=== PATIENT | female | born 1950 | race African-American/Black ===

== ENCOUNTER 2018-03-29 12:39 | Emergency (ER) | payer SELFPAY ==
[2018-03-29 13:30] LABS: #Eosinphils 0.3 thou/uL (0.0-0.7); #Lymphocytes 1.9 thou/uL (1.20-3.40); #Monocytes 0.5 thou/uL (0.11-0.59); %Basophils 0.3 % (0.0-1.0); %Eosinophils 3.9 % (0.0-10.0); %Monocytes 7.5 % (0.0-10.0); %Neutrophils 60.4 % (42.0-75.0); Hemoglobin 11.3 g/dL (12.0-16.0); Mean Corpuscular HGB CONC 29.8 g/dL (32.0-36.0); Mean Corpuscular Hemoglobin 24.4 pg (27.0-31.0); Mean Corpuscular Volume 81.9 fL (78.0-98.0); Platelet Count 269 thou/uL (130-400); RBC Distribution Width 14.2 % (11.5-14.5); Red Blood Cell (RBC) Count 4.62 mill/uL (4.20-5.40); White Blood Cell (WBC) Count 6.6 thou/uL (4.8-10.8)
[2018-03-29 13:39] LABS: ALT (SGPT) 7 U/L (8-55); AST (SGOT) 16 U/L (5-34); Alkaline Phosphatase 104 U/L (40-150); Anion Gap 11 mmol/L (10-20); BUN (Urea Nitrogen) 13 mg/dL (9.8-20.1); Bilirubin, Total 0.3 mg/dL (0.2-1.2); Calc. Creatinine Clearance 0 mL/min (70-130); Calcium 9.6 mg/dL (7.8-10.44); Carbon Dioxide 28 mmol/L (23-31); Chloride 106 mmol/L (98-107); Estimated GFR-MDRD 61; Globulin 4.1 g/dL (2.4-3.5); Glucose 96 mg/dL (80-115); Potassium 3.2 mmol/L (3.5-5.1); Protein, Total 8.1 g/dL (6.0-8.3); Sodium 142 mmol/L (136-145)
--- NOTE | 2018-03-29 15:22 | ULT ---
TRANSABDOMINAL AND TRANSVAGINAL PELVIC ULTRASOUND: Date: 03/29/18 HISTORY: Heavy bleeding, pain. FINDINGS: The uterus measures 11.3 x 7.7 x 6.7 cm. There is a uterine mass consistent with fibroid measuring 4. 6 x 3.1 cm. The endometrium is thickened, measuring 3.1 cm. No endometrial fluid is seen. The right ovary measures 3.7 x 4.0 x 2.9 cm. The left ovary is not visualized. No definite adnexal ma ss or free fluid in the cul-de-sac is seen. No definite flow is noted to the right ovary. IMPRESSION: 1. Uterine fibroid. 2. Thickened endometrium. POS: OFF
[2018-03-29 15:52] LABS: Bilirubin Negative (Negative); Blood, Urine Small (Negative); Clarity CLEAR (Clear); Glucose, Urine (Dipstick) Negative (Negative); Leukocyte Negative (Negative); Nitrite Negative (Negative); Protein, Urine (Dipstick) Negative (Neg-Trace); Urobilinogen 0.2 mg/dL (0.2-1.0)
[2018-03-29 15:55] LABS: Bacteria/HPF None Seen HPF (None Seen); Hyaline Casts/LPF 0-3 HYALINE CAST LPF (0-3 Hyaline); Pathc Cast-AUWi Flag 0.14 (0-2.49); Squamous Epithelial 0-3 HPF (0-3); WBC/HPF 0-3 HPF (0-3)
[2018-03-29 16:01] LABS: Renal Epithelial None Seen HPF (0-3); Transitional Epithelial NONE SEEN HPF (0-3)
== END 2018-03-29 16:42 | disposition home or self-care (01) ==
LOC: ERS 12:39
DX: N93.8 Other specified abnormal uterine and vaginal bleeding (principal); I10 Essential (primary) hypertension; E78.5 Hyperlipidemia, unspecified; Z79.899 Other long term (current) drug therapy
CPT/HCPCS: 36415; 51701; 76856; 80053; 81003; 81015; 85025; 86850; 86900; 86901; A4353

== ENCOUNTER 2019-12-05 12:36 | Outpatient (CLI) | payer MEDICARE ==
--- NOTE | 2019-12-05 13:41 | RAD ---
PA AND LATERAL VIEWS CHEST: 12/05/19 HISTORY: Malignant neoplasm of endometrium. FINDINGS/IMPRESSION: The heart size is borderline. There is elevation of the left hemidiaphragm. There is mild prominence of the pulmonary vascularity. There is increased density in the left suprahilar/hilar regions. No pne umothoraces or pleural effusions are seen. There are degenerative changes of the spine. Further evaluation with contrast. CT scan is recommended. Code T POS: TPC
== END 2019-12-05 12:37 | disposition home or self-care (01) ==
LOC: BICRAD 12:36
PROVIDERS: ATTEND Obstetrics & Gynecology Gynecologic Oncology
DX: C54.1 Malignant neoplasm of endometrium (principal); M47.814 Spondylosis without myelopathy or radiculopathy, thoracic region
CPT/HCPCS: 71046

== ENCOUNTER 2020-02-13 11:51 | Outpatient (CLI) | payer MEDICARE ==
--- NOTE | 2020-02-13 14:39 | RAD ---
PA AND LATERAL CHEST: 02/13/20 HISTORY: Malignant neoplasm of endometrium. COMPARISON: 12/05/19. There is continued elevation of the left hemidiaphragm. The heart size is normal. The aorta is tortuo us. No lobar consolidation, pneumothoraces, or pleural effusions are seen. There are degenerative tomas nges in the spine. IMPRESSION: No radiographic evidence of cardiopulmonary process. POS: NIDHIA
== END 2020-02-13 11:52 | disposition home or self-care (01) ==
LOC: BICRAD 11:51
PROVIDERS: ATTEND Obstetrics & Gynecology Gynecologic Oncology
DX: C54.1 Malignant neoplasm of endometrium (principal)
CPT/HCPCS: 71046

== ENCOUNTER 2020-02-27 08:49 | Outpatient (CLI) | payer MEDICARE ==
[2020-02-27] MEDS ORDERED: Iopamidol 370 76% 100 ML VIAL ONE (09:53)
--- NOTE | 2020-02-27 10:30 | CT ---
CHEST CT WITH CONTRAST: HISTORY: Left hilar mass noted on chest radiograph 12/05/2019. FINDINGS: Mediastinum: No mass, lymphadenopathy or hematoma. Heart is enlarged. No significant pericardial flui d. Visualized aorta has a normal caliber. No periaortic stranding. Subdiaphragmatic structures: No acute abnormality. Trachea and central bronchi: Patent. Pleural spaces: No pleural effusion. Pneumothorax: None. Right lung: Patchy groundglass opacities, nonspecific. No suspicious masses, consolidation or contusi on. Left lung: Patchy groundglass opacities, nonspecific. No suspicious masses, consolidation or contusio n. Overall, diminished lung volumes likely due to poor inspiratory effort. Multilevel osteophyte formation. No lytic or blastic lesions within the osseous structures. Additional findings: Partially calcified nodule in the right thyroid lobe. No evidence of axillary ly mphadenopathy. IMPRESSION: 1. No evidence of a left hilar mass. 2. Partially calcified right thyroid lobe nodule, incompletely evaluated. Nonemergent thyroid ultraso und is recommended. Transcribed Date/Time: 02/27/2020 12:10 PM
== END 2020-02-27 08:50 | disposition home or self-care (01) ==
LOC: CT 08:49
PROVIDERS: ATTEND Obstetrics & Gynecology Gynecologic Oncology
DX: C54.1 Malignant neoplasm of endometrium (principal); E04.1 Nontoxic single thyroid nodule
CPT/HCPCS: 71260; 82565; Q9967

== ENCOUNTER 2020-09-30 07:23 | Outpatient (CLI) | payer MEDICARE ==
--- NOTE | 2020-09-30 08:07 | ULT ---
Thyroid sonogram HISTORY: Thyroid nodule. Abnormal CT chest. FINDINGS: The right thyroid lobe measures up to 3.8 cm. A well-circumscribed oval solid nodule near t he superior pole measures up to 0.7 cm. The at the inferior pole is a well-circumscribed homogeneous slightly hypoechoic solid nodule that is 1.5 cm length by 1.3 cm width by 1.0 cm depth. A peripherally calcified nodule at the inferior pole, correlating with that seen on recent CT, is 0.9 cm greatest diameter. Isthmus is 0.6 cm. At the left side of the isthmus is a 0.8 cm oval complex lesion with well-defined margins. Left thyroid lobe measures up to 3.9 cm. A cyst at the superior pole is 0.5 cm. Dystrophic calcificat ion at the midportion is 0.6 cm. At the inferior pole is a 0.4 cm cyst. IMPRESSION : Multiple solid and cystic thyroid nodules and calcifications. Largest lesion is at the inferior pole of the right lobe, 1.5 cm. TI RADS 4. Moderately suspicious. Given the size and the depth (which would make the lesion very hard for tissue sampling), please consider follow-up sonogram in 6-12 months to evaluate for stability.
== END 2020-09-30 07:24 | disposition home or self-care (01) ==
LOC: BICULT 07:23
PROVIDERS: ATTEND Nurse Practitioner Family
DX: E04.2 Nontoxic multinodular goiter (principal); C54.1 Malignant neoplasm of endometrium; E03.2 Hypothyroidism due to medicaments and other exogenous substances
CPT/HCPCS: 76536

== ENCOUNTER 2021-10-10 09:56 | Outpatient (CLI) | payer MEDICARE | END 2021-10-10 09:57 | disposition home or self-care (01) | LOC: BICMAMMO 09:56 | PROVIDERS: ATTEND Family Medicine | DX: Z12.31 Encounter for screening mammogram for malignant neoplasm of breast (principal); M81.0 Age-related osteoporosis without current pathological fracture | CPT/HCPCS: 77063; 77067; 77080 ==

== ENCOUNTER 2023-02-07 07:14 | Inpatient (IN) | payer MEDICARE, OTHER ==
[2023-02-07] MEDS ORDERED: Cefepime 2 GM VIAL ONE (08:25)
[2023-02-07] MEDS ORDERED: Sodium Chloride 0.9% 100 ML ONE (08:25)
[2023-02-07] MEDS ORDERED: Mupirocin 2% Ointment 22 GM Tube TOP SCH (08:30)
[2023-02-07] MEDS ORDERED: Iopamidol 370 76% 100 ML VIAL ONE (08:41)
[2023-02-07 08:44] LABS: #Eosinphils 0.1 thou/uL (0.0-0.7); #Lymphocytes 0.7 thou/uL (1.20-3.40); #Monocytes 0.6 thou/uL (0.11-0.59); %Basophils 0.1 % (0.0-1.0); %Eosinophils 1.7 % (0.0-10.0); %Lymphocytes 12.9 % (21.0-51.0); %Monocytes 11.6 % (0.0-10.0); %Neutrophils 73.7 % (42.0-75.0); Hemoglobin 10.5 g/dL (12.0-16.0); Mean Corpuscular HGB CONC 30.4 g/dL (32.0-36.0); Mean Corpuscular Hemoglobin 25.2 pg (27.0-31.0); Mean Corpuscular Volume 83.1 fl (78.0-98.0); Mean Platelet Volume 8.4 fL (7.4-10.4); Platelet Count 224 10x3/uL (130-400); RBC Distribution Width 15.1 % (11.5-14.5); Red Blood Cell (RBC) Count 4.16 mill/uL (4.20-5.40); White Blood Cell (WBC) Count 5.4 10x3/uL (4.8-10.8)
[2023-02-07 09:05] LABS: ALT (SGPT) 10 U/L (8-55); AST (SGOT) 13 U/L (5-34); Alkaline Phosphatase 105 U/L (40-110); Anion Gap 11 mmol/L (10-20); BUN (Urea Nitrogen) 20 mg/dL (9.8-20.1); Bilirubin, Total 0.2 mg/dL (0.2-1.2); Calc. Creatinine Clearance 0 mL/min (70-130); Carbon Dioxide 30 mmol/L (23-31); Chloride 103 mmol/L (98-107); Estimated GFR 49; Globulin 3.8 g/dL (2.4-3.5); Glucose 97 mg/dL (83-110); Potassium 3.4 mmol/L (3.5-5.1); Protein, Total 7.8 g/dL (5.8-8.1); Sodium 141 mmol/L (136-145)
[2023-02-07] MEDS ORDERED: Vancomycin 1 GM/200 ML (FROZEN) BAG ONE (09:14)
[2023-02-07] MEDS ORDERED: VANCOMYCIN 2 GRAM/500 ML BAG 2 GM in Premix Bag 1 BAG IVPB SCH (09:45)
[2023-02-07] MEDS ORDERED: Ondansetron ODT 4 MG TAB PO PRN (12:25)
[2023-02-07] MEDS ORDERED: Ondansetron ODT 4 MG TAB SL PRN (12:30)
[2023-02-07] MEDS ORDERED: Ondansetron PF 4 MG/2 ML Vial IVP PRN (12:30)
[2023-02-07] MEDS ORDERED: Acetaminophen 325 MG TAB PO PRN (12:30)
[2023-02-07 13:10] VITALS: BMI 37.8
[2023-02-07] MEDS ORDERED: Amlodipine 10 MG TAB PO SCH (14:30)
[2023-02-07] MEDS ORDERED: Acyclovir 400 mg Tablet PO SCH (15:00)
[2023-02-07] MEDS: Acetaminophen 325 MG TAB PO PRN ×2 (15:58→20:29)
[2023-02-07] MEDS: valACYclovir 500 MG TAB PO SCH (20:29)
[2023-02-08] MEDS: Levothyroxine Sodium 100 MCG TAB PO SCH (05:52)
[2023-02-08] MEDS: Acetaminophen 325 MG TAB PO PRN ×2 (05:55→20:26)
[2023-02-08 06:31] LABS: #Eosinphils 0.1 thou/uL (0.0-0.7); #Lymphocytes 0.8 thou/uL (1.20-3.40); #Monocytes 0.7 thou/uL (0.11-0.59); #Neutrophils 3.9 thou/uL (1.40-6.50); %Basophils 0.3 % (0.0-1.0); %Eosinophils 2.1 % (0.0-10.0); %Lymphocytes 13.8 % (21.0-51.0); %Monocytes 12.8 % (0.0-10.0); %Neutrophils 71.1 % (42.0-75.0); Hemoglobin 10.5 g/dL (12.0-16.0); Mean Corpuscular HGB CONC 31.6 g/dL (32.0-36.0); Mean Corpuscular Hemoglobin 26.1 pg (27.0-31.0); Mean Corpuscular Volume 82.7 fl (78.0-98.0); Mean Platelet Volume 8.6 fL (7.4-10.4); Platelet Count 208 10x3/uL (130-400); RBC Distribution Width 14.9 % (11.5-14.5); Red Blood Cell (RBC) Count 4.02 mill/uL (4.20-5.40); White Blood Cell (WBC) Count 5.4 10x3/uL (4.8-10.8)
[2023-02-08 06:51] LABS: ALT (SGPT) 10 U/L (8-55); AST (SGOT) 15 U/L (5-34); Albumin 3.7 g/dL (3.4-4.8); Alkaline Phosphatase 93 U/L (40-110); Anion Gap 12 mmol/L (10-20); BUN (Urea Nitrogen) 18 mg/dL (9.8-20.1); Bilirubin, Total 0.2 mg/dL (0.2-1.2); Calc. Creatinine Clearance 59 mL/min (70-130); Calcium 9.7 mg/dL (7.8-10.44); Carbon Dioxide 28 mmol/L (23-31); Chloride 105 mmol/L (98-107); Estimated GFR 45; Globulin 3.6 g/dL (2.4-3.5); Glucose 90 mg/dL (83-110); Potassium 3.5 mmol/L (3.5-5.1); Protein, Total 7.3 g/dL (5.8-8.1); Sodium 141 mmol/L (136-145)
[2023-02-08] MEDS: valACYclovir 500 MG TAB PO SCH ×3 (08:35→20:26)
[2023-02-08] MEDS: Amlodipine 10 MG TAB PO SCH (08:35)
[2023-02-08] MEDS ORDERED: VANCOMYCIN 1.75 GM/500 ML BAG 1.75 GM in Premix Bag 1 BAG IVPB SCH (10:00)
[2023-02-08] MEDS ORDERED: VANCOMYCIN 1.25 GM/250 ML BAG 1.25 GM in Premix Bag 1 BAG IVPB SCH (11:00)
[2023-02-08 14:58] LABS: Iron 19 ug/dL (50-170); Iron Binding Capacity, Total 273 mcg/dL (265-497)
[2023-02-08] MEDS ORDERED: Ferrous Sulfate 325 MG TAB PO SCH (17:00)
[2023-02-08] MEDS: Rosuvastatin 10 MG TAB PO SCH (20:26)
[2023-02-09] MEDS: Levothyroxine Sodium 100 MCG TAB PO SCH (05:38)
[2023-02-09 06:13] LABS: #Eosinphils 0.1 thou/uL (0.0-0.7); #Monocytes 0.8 thou/uL (0.11-0.59); #Neutrophils 3.1 thou/uL (1.40-6.50); %Basophils 0.4 % (0.0-1.0); %Eosinophils 1.4 % (0.0-10.0); %Lymphocytes 19.1 % (21.0-51.0); %Monocytes 16.1 % (0.0-10.0); %Neutrophils 62.8 % (42.0-75.0); Hemoglobin 10.3 g/dL (12.0-16.0); Mean Corpuscular HGB CONC 28.8 g/dL (32.0-36.0); Mean Corpuscular Hemoglobin 23.5 pg (27.0-31.0); Mean Corpuscular Volume 81.7 fl (78.0-98.0); Mean Platelet Volume 10.1 fL (7.4-10.4); Platelet Count 232 10x3/uL (130-400); RBC Distribution Width 16.2 % (11.5-14.5); Red Blood Cell (RBC) Count 4.38 mill/uL (4.20-5.40)
[2023-02-09 06:34] LABS: Anion Gap 15 mmol/L (10-20); BUN (Urea Nitrogen) 16 mg/dL (9.8-20.1); Calc. Creatinine Clearance 66 mL/min (70-130); Calcium 9.6 mg/dL (7.8-10.44); Carbon Dioxide 26 mmol/L (23-31); Chloride 104 mmol/L (98-107); Estimated GFR 51; Glucose 88 mg/dL (83-110); Potassium 3.5 mmol/L (3.5-5.1); Sodium 141 mmol/L (136-145)
[2023-02-09] MEDS: valACYclovir 500 MG TAB PO SCH ×3 (08:25→20:24)
[2023-02-09] MEDS: Amlodipine 10 MG TAB PO SCH (08:25)
[2023-02-09] MEDS ORDERED: Linezolid 600 MG TAB PO SCH (10:00)
[2023-02-09 10:14] LABS: Vancomycin, Trough 15.7 ug/mL
[2023-02-09] MEDS: Rosuvastatin 10 MG TAB PO SCH (20:24)
[2023-02-09] MEDS: Linezolid 600 MG TAB PO SCH (20:24)
[2023-02-09] MEDS: Acetaminophen 325 MG TAB PO PRN (20:25)
[2023-02-09] MEDS ORDERED: Linezolid 600 MG in Premix Bag 1 BAG IVPB SCH (21:00)
[2023-02-10] MEDS: Levothyroxine Sodium 100 MCG TAB PO SCH (05:25)
[2023-02-10 06:50] LABS: Anion Gap 14 mmol/L (10-20); BUN (Urea Nitrogen) 20 mg/dL (9.8-20.1); Calc. Creatinine Clearance 58 mL/min (70-130); Calcium 9.4 mg/dL (7.8-10.44); Carbon Dioxide 24 mmol/L (23-31); Chloride 103 mmol/L (98-107); Estimated GFR 45; Glucose 89 mg/dL (83-110); Potassium 3.6 mmol/L (3.5-5.1); Sodium 137 mmol/L (136-145)
[2023-02-10 08:24] VITALS: BP 134/78; TEMP 98.4
[2023-02-10] MEDS: Linezolid 600 MG TAB PO SCH (08:43)
[2023-02-10] MEDS: Amlodipine 10 MG TAB PO SCH (08:43)
[2023-02-10] MEDS: valACYclovir 500 MG TAB PO SCH (08:43)
[2023-02-10] MEDS ORDERED: Mupirocin 2% Ointment 22 GM Tube TOP SCH (09:00)
== END 2023-02-10 12:36 | disposition home or self-care (01) | DRG 603 ==
LOC: ERS 07:14 → T4-B 11:18 → OBSVTOIN 02-08 11:04
PROVIDERS: ADMIT Emergency Medicine; ATTEND Emergency Medicine
DX: L03.211 Cellulitis of face (principal); I10 Essential (primary) hypertension; E03.9 Hypothyroidism, unspecified; E78.5 Hyperlipidemia, unspecified; L01.00 Impetigo, unspecified; Z88.8 Allergy status to other drugs, medicaments and biological substances; Z79.890 Hormone replacement therapy; Z79.899 Other long term (current) drug therapy; Z90.710 Acquired absence of both cervix and uterus
CPT/HCPCS: 36415; 70487; 80048; 80053; 80202; 82728; 83540; 83550; 84443; 85025; 87070; 87077; 87186; 87205; 96365; 96366; 96367; 96372; G0378; J0692; J1650; J3370; J3370-JW; J3490; Q9967

== ENCOUNTER 2023-07-12 10:31 | Outpatient (CLI) | payer OTHER | END 2023-07-12 10:32 | disposition home or self-care (01) | LOC: BICRAD 10:31 | PROVIDERS: ATTEND Student in an Organized Health Care Education/Training Program | DX: M18.11 Unilateral primary osteoarthritis of first carpometacarpal joint, right hand (principal); M19.031 Primary osteoarthritis, right wrist; M19.041 Primary osteoarthritis, right hand ==